=== PATIENT | male | born 2000 | race Caucasian/White ===

== ENCOUNTER 2019-03-27 09:03 | Day surgery (SDC) | payer OTHER ==
[~2019-03-27] VITALS: Ht 175.3 cm; Wt 96.6 kg
[~2019-03-27 09:03] MED LIST: LIDOCAINE 1% MDV 20ML VIAL SQ PRN; LR 1,000 ML IV ONE; MELA10TA2 PO; RANI1TAB38 PO
[2019-03-27] MEDS ORDERED: LIDOCAINE 2% INJ 100 MG/5 ML SDV (FOR ANES.) As Ordered ONE (09:55)
[2019-03-27] MEDS ORDERED: PROPOFOL 200 MG/20 ML VIAL As Ordered ONE (09:55)
[2019-03-27] MEDS ORDERED: SUCCINYLCHOLINE 100 MG/5 ML SYRINGE (J0330) As Ordered ONE (09:55)
[2019-03-27] MEDS ORDERED: ONDANSETRON 4MG/2ML VIAL (J2405) As Ordered ONE (09:56)
[2019-03-27] MEDS ORDERED: dexameTHASONE 4 MG/ML 1ML VIAL (J1100) As Ordered ONE ×2 (09:56→10:52)
[2019-03-27] MEDS ORDERED: fentaNYL 100 MCG/2 ML INJECTION (J3010) As Ordered ONE (09:58)
[2019-03-27] MEDS ORDERED: MIDAZOLAM INJ 2 MG/2 ML VIAL (J2250) As Ordered ONE (09:58)
[2019-03-27] MEDS ORDERED: LIDOCAINE W/EPINEPHRINE 1% 20ML VIAL As Ordered ONE (10:27)
[2019-03-27] MEDS ORDERED: ACETAMINOPHEN 1000MG 100ML IV BTL (OFIRMEV) (J0131 PER 10MG) As Ordered ONE (10:41)
[2019-03-27] MEDS ORDERED: PERCOCET 5MG/325MG TAB As Ordered ONE (11:42)
[2019-03-27] MEDS ORDERED: PERCOCET 5MG/325MG TAB PO PRN (12:00)
[2019-03-27] MEDS ORDERED: HYDROMORPHONE HCL 0.5 MG/ 0.5 ML SYRINGE (J1170 PER 1) IV PRN (12:00)
[2019-03-27] MEDS ORDERED: LR 1,000 ML IV SCH ×2 (12:00)
[2019-03-27] MEDS ORDERED: ONDANSETRON 4MG/2ML VIAL (J2405) IV PRN (12:00)
[2019-03-27] MEDS ORDERED: fentaNYL 100 MCG/2 ML INJECTION (J3010) IV PRN (12:00)
[2019-03-27] MEDS ORDERED: IBUPROFEN 100 MG/5 ML SUSP UDC DYE FREE As Ordered ONE (12:43)
[2019-03-27] MEDS ORDERED: IBUPROFEN 600 MG TAB PO ONE (13:00)
[2019-03-27] MEDS ORDERED: IBUPROFEN 100 MG/5 ML SUSP UDC DYE FREE PO ONE ×2 (14:00→15:00)
[2019-03-27 14:20] VITALS: BP 131/75
--- NOTE | 2019-03-28 14:29 | RO ---
DATE OF PROCEDURE: 03/27/2019 PREOPERATIVE DIAGNOSIS: Impacted teeth. POSTOPERATIVE DIAGNOSIS: Impacted teeth. PROCEDURE PERFORMED: Extraction of teeth 1, 16, 17, 32. SURGEON: Armando Arias DMD INSPECTOR MOTOR VEHICLES: ANESTHESIA: General. ESTIMATED BLOOD LOSS: 10 mL. COMPLICATIONS: None. SPECIMEN: Teeth DESCRIPTION OF PROCEDURE:
== END 2019-03-27 14:26 | disposition home or self-care (01) ==
LOC: M SDC 09:03
PROVIDERS: ATTEND Dentist Oral and Maxillofacial Surgery
DX: K01.1 Impacted teeth (principal); K21.9 Gastro-esophageal reflux disease without esophagitis; Z79.899 Other long term (current) drug therapy; Z88.0 Allergy status to penicillin
CPT/HCPCS: 88300; D7210; D7230; D9223; J0131; J0330; J1100; J2250; J2405; J3010